=== PATIENT | male | born 1960 | race Caucasian/White ===

== ENCOUNTER → 2017-07-24 | Outpatient (CLI) | payer BC, OTHER ==
[~2017-07-24] MED LIST: ALLO100T PO; ALLOPURINOL; ALLP100T PO; ASPI-999 PO; Aspirin PO; GABA600T2 PO; HCT25T; HCT25T PO; HYDR-707 PO; HYDR25TA4 PO; ISOS30TA3 PO; LISI20TA; NFPROP80LA PO; Non Medication Item PO; OMEG1CAP51; OMEG1CAP51 PO; OXYC1TAB25 PO; PANT40TA2 PO; PNT40TEC PO; PREG150C PO; PREG25CA PO; PROP120C21 PO; PROP120C3 PO; PROPANOLOL; TICA90TA PO; Ticagrelor PO; UBID1CAP51 PO; VERA240T; VERA240T98 PO; VRP240TCR PO
== END ==
LOC: CARD 13:44
PROVIDERS: ATTEND Internal Medicine Cardiovascular Disease
DX: I25.10 Atherosclerotic heart disease of native coronary artery without angina pectoris (principal); I10 Essential (primary) hypertension; R00.2 Palpitations; I07.1 Rheumatic tricuspid insufficiency
CPT/HCPCS: 93306

== ENCOUNTER → 2017-08-01 | Outpatient (CLI) | payer BC, OTHER ==
[~2017-08-01] MED LIST changes: +CATHETER FLUSH 10 ML SYR IV PRN
[2017-08-01 09:21] VITALS: BP 140/69
[2017-08-01 09:26] VITALS: BP 150/75
[2017-08-01 09:33] VITALS: BP 210/86
--- NOTE | 2017-08-02 06:30 | STRESS TEST ---
DATE OF SERVICE: 08/01/2017 EXERCISE MYOVIEW STRESS TEST REPORT Baseline heart rate is 60. Baseline blood pressure 149/93. Baseline EKG is sinus rhythm with no ischemic changes. In summary, the patient was injected with 10.98 mCi of technetium-99 Myoview and the resting images were obtained. Then, the patient started exercising with a baseline heart rate, blood pressure and EKG mentioned above. At minute 9, the patient was injected with 28.4 mCi of technetium-99 Myoview. The patient was able to exercise for a total of 10 minutes on standard Brian protocol. With peak exercise level, EKG was showing minimal nondiagnostic changes [address] depression in II, III, aVF. Blood pressure was 150/75, it went up to 210/86. During recovery, heart rate and blood pressure returned to baseline. EKG returned to baseline. The resting and stress images were reviewed and compared in the short axis, horizontal long axis and vertical long axis views revealed the images showed diaphragmatic attenuation with typical male pattern. No significant ischemia or infarction on SPECT images. SSS is 1, SDS 1, TID value 0.91. On the gated images, the left ventricle appeared to be normal size with normal contractility, calculated ejection fraction 59%. IN CONCLUSION: 1. Good exercise tolerance. A total of 10 minutes on standard Brian protocol, total of 11.7 METS achieving 98% of maximum expected heart rate. 2. Severe hypertensive response to exercise, returned to baseline during recovery. 3. Nondiagnostic EKG changes with exercise, returned to baseline during recovery. 4. Typical male pattern with no significant ischemia or infarction on SPECT images. 5. Normal left ventricular size with normal contractility. Calculated ejection fraction 59%. Job ID: [id number] DocumentID: [id number] Dictated Date: 08/01/2017 15:26:19 Field Irrigation Worker Date: 08/02/2017 00:12:15 Dictated By: CHECO CARRANZA MD
== END ==
LOC: CARD 07:09
PROVIDERS: ATTEND Physician Assistant
DX: I25.10 Atherosclerotic heart disease of native coronary artery without angina pectoris (principal); I10 Essential (primary) hypertension; I07.1 Rheumatic tricuspid insufficiency; R00.2 Palpitations
CPT/HCPCS: 78452; 93017

== ENCOUNTER 2017-12-18 13:00 | Outpatient (CLI) | payer BC ==
[~2017-12-18] VITALS: Ht 182.9 cm; Wt 108.9 kg
[~2017-12-18 13:00] MED LIST changes: -CATHETER FLUSH 10 ML SYR IV PRN; +DOCO1CAP3 PO; +DULO60CA6 PO; +PROP80TA3 PO; +UBID1CAP53 PO
== END 2017-12-18 13:29 ==
LOC: PREOP 13:00
PROVIDERS: ATTEND Internal Medicine
DX: Z01.818 Encounter for other preprocedural examination (principal); Z12.11 Encounter for screening for malignant neoplasm of colon

== ENCOUNTER 2017-12-21 07:55 | Day surgery (SDC) | payer BC ==
--- NOTE | 2017-12-14 13:45 | HISTORY AND PHYSICAL ---
DATE OF SERVICE: COLONOSCOPY H AND P DATE OF ADMISSION: 12/21/2017 HISTORY OF PRESENT ILLNESS: The patient is a 57-year-old white male referred by Dr. Cb Iniguez for his first screening colonoscopy. He is deemed to be of average risk for colon cancer as he is not aware of any family history for colon cancer. He thought that his parents had undergone colonoscopy, but was unsure as to whether or not they had any polyps. I reviewed their electronic medical records and there have been no evidence for colonoscopy having been performed on either within the last 11 years at our institution. He reports no problems with bright red blood per rectum, melena and denies bowel habit change or abdominal pain. There is no known family history for inflammatory bowel disease or any other known GI tract malignancy. PAST MEDICAL HISTORY: Significant for coronary artery disease. He underwent drug-eluting stent placement to the LAD in 2014 with one subsequent admission after stent placement in 2014. Repeat catheterization revealed a patent stent with nonobstructive moderate right coronary artery disease and preserved ejection fraction estimated at 60%. 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 He still reports weakness and ultimately underwent biopsies in 2009 and in 2010, but did not apparently result in any subsequent medical therapy. He has not been getting progressively worse. PAST SURGICAL HISTORY: He has had arthroscopic surgery for reported bone spurs in both shoulders and bilateral arthroscopic knee surgery with no history of joint replacement. FAMILY HISTORY: Mother is living at the age of 80, has history of coronary artery disease. Father at the age of 86, also had coronary artery disease, but cause of was related to Alzheimer's dementia. MEDICATIONS ON ADMISSION: Include verapamil ER 240 daily, hydrochlorothiazide 25 mg daily, propranolol ER 80 mg daily, allopurinol 200 mg daily, fish oil daily, Cymbalta, unknown dose daily and a baby aspirin daily. SOCIAL HISTORY: The patient reports no past smoking or drinking history and is gainfully employed. REVIEW OF SYSTEMS: CONSTITUTIONAL: The patient reports his weight has been stable. He denies night sweats, chills, fever or fatigue. CARDIOVASCULAR: He denies any current chest pain or increase in dyspnea on exertion over baseline, syncope, presyncope with no intervention since 2014. PULMONARY: He denies problems with cough, wheezing, pleuritic chest pain or shortness of breath. PSYCHIATRIC: He reports depression has been controlled in remission with no anxiety. PHYSICAL EXAMINATION: GENERAL: Reveals a pleasant overweight white male in no acute distress. VITAL SIGNS: Weight 248 pounds, blood pressure 114/74, heart rate 66 and regular. HEENT: Unremarkable. Sclerae are nonicteric, atraumatic, normocephalic. NECK: Revealed no JVD, adenopathy or bruits. Oral cavity reveals a Mallampati class III configuration without exudate. CHEST: Clear. CARDIOVASCULAR: Reveals regular rate and rhythm without murmur, S3 or S4. EXTREMITIES: Reveal no cyanosis, clubbing or edema. ASSESSMENT/PLAN: The patient was set up for his first screening colonoscopy on 12/21/2017. Prep instructions with the Foreman-prep kit were given and questions were answered. In today's evaluation and review of electronic medical record, little over 45 minutes of care time was spent by myself and another 15 minutes of staff time in going over prep instructions and setting up the procedure. I thank you for the referral of this pleasant gentleman. Job ID: [id number] DocumentID: [id number] Dictated Date: 12/14/2017 12:36:02 Commercial Hvac Service Technician Date: 12/14/2017 13:44:24 Dictated By: HUSSEIN ADAMS MD
[~2017-12-21] VITALS: Ht 182.9 cm; Wt 108.9 kg
--- OUTSIDE RECORDS SUMMARY | 2017-12-21 07:58 | XMS REPORT | Clinical Summary ---
Author Author [facility] Organization [facility] Address Unknown Phone Unavailable Care Team Providers Care Fleet Assistant Name Role Phone Edgar Velazquez MD PCP Source Comments Some departments are not documenting in the electronic medical record. If you do not see the information that you expected, contact Release of Information in the Health Information Management department at [phone] for further assistance in locating additional records.[facility] Allergies Not on File Current Medications Not on file Active Problems Not on file Social History Tobacco Use Types Packs/Day Years Used Date Never Assessed Sex Assigned at Date Recorded Not on file Last Filed Vital Signs Not on file Plan of Treatment Health Maintenance Due Date Last Done Comments HEPATITIS C SCREENING 1959 PHYSICAL (COMPREHENSIVE) 1966 EXAM PERTUSSIS VACCINE 1970 TETANUS VACCINE 02/18/1976 COLORECTAL CANCER 2009 SCREENING INFLUENZA VACCINE 05/22/2017 Results Not on filefrom Last 3 Months
--- OUTSIDE RECORDS SUMMARY | 2017-12-21 07:59 | XMS REPORT ---
Author Author JACKY VERMA Organization [employer] Address Unknown Phone Unavailable Care Team Providers Care Passenger Attendant Name Role Phone JACKY VERMA CP Unavailable Allergies No Known Allergies Problems Problem Type Condition ICD-9 Code Onset Dates Condition Status Assessment Dental examination V72.2 Active Medications No Known Medications Procedures Procedure Coding System Code Date INTRAORL-PERIAPICAL 1 FILM 65397 CPT-4 D0220 May 07, 2015 BITEWING - SINGLE FILM CPT-4 D0270 May 07, 2015 LTD ORAL EVALUATION - PROBLEM FOCUS CPT-4 D0140 May 07, 2015 Results No Known Results Summary Purpose [employer] Submission
--- OUTSIDE RECORDS SUMMARY | 2017-12-21 07:59 | XMS REPORT | Continuity of Care Document ---
Author Author [facility] Organization [facility] Address Unknown Phone Unavailable Allergies Active Description Code Type Severity Reaction Onset Reported/Identified Relationship to Patient Clinical Status Yes No Known Drug Allergies [id number] Drug Allergy Mild N/A 05/03/2009 Yes Npvxhgj-Ehn-Rsw Reductase Inhibitor [id number] Drug Allergy Unknown N/A Yes Ctdqkeu-Okm-Fyx Reductase Inhibitor [id number] Drug Allergy Mild RHABDOMYOLYSIS 12/18/2017 Medications There is no data. Problems Date Dx Coded Attending Type Code Diagnosis Diagnosed By 09/12/2011 Ot 729.1 09/12/2011 Ot 795.79 04/13/2015 Ot 785.1 04/13/2015 Ot 796.4 04/13/2015 Ot V72.84 04/13/2015 Ot V74.8 04/13/2015 Ot 795.79 04/13/2015 Ot 443.9 04/15/2015 MARIA TERESA REINA MD Ot 278.00 OBESITY, NOS 04/15/2015 MARIA TERESA REINA MD Ot 401.9 HYPERTENSION NOS 04/15/2015 MARIA TERESA REINA MD Ot 414.01 CORONARY ATHEROSCLEROSIS OF [place] RESERV[place] CORON 04/15/2015 MARIA TERESA REINA MD Ot 728.88 RHABDOMYOLYSIS 04/15/2015 MARIA TERESA REINA MD Ot 786.50 CHEST PAIN NOS 04/15/2015 MARIA TERESA REINA MD Ot V58.69 OTH MED,LT,CURRENT USE 04/15/2015 MARIA TERESA REINA MD Ot V85.35 BODY MASS INDEX 35.0-35.9, ADULT 07/09/2015 Ot 785.1 07/09/2015 Ot 796.4 07/09/2015 Ot V72.84 07/09/2015 Ot V74.8 07/09/2015 Ot 795.79 07/09/2015 Ot 443.9 07/09/2015 CHECO CARRANZA MD Ot 272.4 HYPERLIPIDEMIA NEC/NOS 07/09/2015 CHECO CARRANZA MD Ot 278.00 OBESITY, NOS 07/09/2015 CHECO CARRANZA MD Ot 401.9 HYPERTENSION NOS 07/09/2015 CHECO CARRANZA MD Ot 411.1 INTERMED CORONARY SYND 07/09/2015 CHECO CARRANZA MD Ot 414.01 CORONARY ATHEROSCLEROSIS OF [place] RESERVATION CORON 07/09/2015 CHECO CARRANZA MD Ot 785.1 PALPITATIONS 07/09/2015 CHECO CARRANZA MD Ot V17.49 FAMILY HISTORY OF OTHER CARDIOVASCULAR D 07/09/2015 CHECO CARRANZA MD Ot V45.82 PERCUTANEOUS TRANSLUM CORON ANGIOPLASTY 07/09/2015 CHECO CARRANZA MD Ot V58.63 LONG-TERM(CURRENT)USE OF ANTIPLATELET/AN 07/09/2015 CHECO CARRANZA MD Ot V58.69 OTH MED,LT,CURRENT USE 07/09/2015 CHECO CARRANZA MD Ot V85.35 BODY MASS INDEX 35.0-35.9, ADULT 07/18/2017 Ot 443.9 PERIPH VASCULAR DIS NOS 07/24/2017 Ot 443.9 PERIPH VASCULAR DIS NOS 08/01/2017 CHECO CARRANZA MD Ot I07.1 RHEUMATIC TRICUSPID INSUFFICIENCY 08/01/2017 CHECO CARRANZA MD Ot I10 ESSENTIAL (PRIMARY) HYPERTENSION 08/01/2017 CHECO CARRANZA MD Ot I25.10 ATHSCL HEART DISEASE OF [place] CORONARY 08/01/2017 CHECO CARRANZA MD Ot R00.2 PALPITATIONS 08/15/2017 CANDI EASTMAN Ot I07.1 RHEUMATIC TRICUSPID INSUFFICIENCY 08/15/2017 CANDI EASTMAN Ot I10 ESSENTIAL (PRIMARY) HYPERTENSION 08/15/2017 CANDI EASTMAN Ot I25.10 ATHSCL HEART DISEASE OF [place] RESERV[place] CORONARY 08/15/2017 CANDI EASTMAN Ot R00.2 PALPITATIONS 12/17/2017 CANDI EASTMAN Ot I07.1 RHEUMATIC TRICUSPID INSUFFICIENCY 12/17/2017 CANDI EASTMAN Ot I10 ESSENTIAL (PRIMARY) HYPERTENSION 12/17/2017 CANDI EASTMAN Ot I25.10 ATHSCL HEART DISEASE OF [place] RESERV[place] CORONARY 12/17/2017 CANDI EASTMAN Ot R00.2 PALPITATIONS 12/18/2017 HUSSEIN ADAMS MD Ot Z01.818 ENCOUNTER FOR OTHER PREPROCEDURAL EXAMIN 12/18/2017 HUSSEIN ADAMS MD Ot Z12.11 ENCOUNTER FOR SCREENING FOR MALIGNANT NE 12/18/2017 HUSSEIN ADAMS MD Ot Z01.818 ENCOUNTER FOR OTHER PREPROCEDURAL EXAMIN 12/18/2017 HUSSEIN ADAMS MD Ot Z12.11 ENCOUNTER FOR SCREENING FOR MALIGNANT NE 12/19/2017 CANDI EASTMAN Ot I07.1 RHEUMATIC TRICUSPID INSUFFICIENCY 12/19/2017 CANDI EASTMAN Ot I10 ESSENTIAL (PRIMARY) HYPERTENSION 12/19/2017 CANDI EASTMAN Ot I25.10 ATHSCL HEART DISEASE OF [place] RESERV[place] CORONARY 12/19/2017 CANDI EASTMAN Ot R00.2 PALPITATIONS Procedures There is no data. Results There is no data. Encounters ACCT No. Visit Date/Time Discharge Status Pt. Type Provider Facility Loc./Unit Complaint [id number] 12/18/2017 13:00:00 12/18/2017 13:29:00 DIS Outpatient HUSSEIN ADAMS MD [facility] PREOP COLONOSCOPY [id number] 08/01/2017 07:09:00 08/01/2017 23:59:59 CLS Outpatient CANDI EASTMAN [facility] CARD CAD [id number] 07/24/2017 13:44:00 07/24/2017 23:59:59 CLS Outpatient CHECO CARRANZA MD [facility] CARD CAD [id number] 07/09/2015 10:40:00 07/09/2015 17:30:00 DIS Outpatient CHECO CARRANZA MD [facility] CATH CP HTN PALPITATIONS HLP [id number] 04/13/2015 12:15:00 04/15/2015 07:00:00 DIS Outpatient MARIA TERESA REINA MD [facility] CATH CHEST PAIN [id number] 12/21/2017 07:55:00 ACT Outpatient HUSSEIN ADAMS MD [facility] ENDO SCREENING [id number] 07/12/2012 09:02:00 Document Registration [id number] 09/12/2011 05:39:00 Document Registration [id number] 09/11/2011 16:08:00 Document Registration [id number] 09/11/2011 15:22:00 Document Registration [id number] 09/08/2010 13:55:00 Document Registration
[2017-12-21] MEDS ORDERED: 1/2 NS IV SOLUTION 1,000 ML IV STA (08:02)
[2017-12-21] MEDS ORDERED: 1/2 NS IV SOLUTION 1,000 ML IV ONE (08:05)
[2017-12-21] MEDS ORDERED: LIDOCAINE JELLY 2% (XYLOCAINE) 5 ML TUBE MM PRN (08:15)
[2017-12-21 08:17] VITALS: BP 118/74
--- NOTE | 2017-12-21 08:48 | Pre-Op Note & Conscious Sedat ---
Pre-Operative Progress Note H&P Reviewed The H&P was reviewed, patient examined and no changes noted. Date H&P Reviewed: Dec 21, 2017 Time H&P Reviewed: 08:47 Conscious Sedation Pre-Proced ASA Class: 2 Airway Mallampati Classification: ([place] appropriate class) I. II. III, IV Lungs Heart ASA score ASA 1: a normal healthy patient ASA 2: a patient with a mild systemic disease (mid diabetes, controlled hypertension, obesity ASA 3: a patient with a severe systemic disease that limits activity (angina , COPD, prior Myocardial infarction) ASA 4: a patient with an incapacitating disease that is a constant threat to life (CHF, renal failure) ASA 5: a moribund patient not expected to survive 24 hrs. (ruptured aneurysm) ASA 6: a declared brain patient whose organs are being harvested. For emergent operations, add the letter E after the classification Grade 3 Sedation Plan: Analgesia, Amnesia, Plan communicated to team members, Discussed options with patient/fam, Discussed risks with patient/fam Note The patient is an appropriate candidate to undergo the planned procedure, sedation, and anesthesia. The patient immediately re-assessed prior to indication. HUSSEIN ADAMS MD Dec 21, 2017 08:48
[2017-12-21] MEDS ORDERED: LIDOCAINE JELLY 2% (XYLOCAINE) 5 ML TUBE ONE (09:33)
[2017-12-21] MEDS ORDERED: fentaNYL INJECTION 100 MCG/2 ML AMP ONE (09:33)
[2017-12-21] MEDS ORDERED: MIDAZOLAM 2 MG/2 ML (VERSED) VIAL ONE ×3 (09:34)
[2017-12-21] MEDS: fentaNYL INJECTION 100 MCG/2 ML AMP IVP PRN ×2 (09:50→09:58)
[2017-12-21] MEDS: MIDAZOLAM 2 MG/2 ML (VERSED) VIAL IVP PRN ×2 (09:51→09:59)
[2017-12-21 10:55] VITALS: BP 137/77
[2017-12-21 11:25] VITALS: BP 126/82
[2017-12-21 11:45] VITALS: BP 126/82
--- NOTE | 2017-12-21 23:37 | OPERATIVE REPORT ---
DATE OF SERVICE: COLONOSCOPY SUMMARY INDICATION FOR PROCEDURE: Screening colonoscopy. DESCRIPTION OF PROCEDURE: The patient was placed in the left lateral decubitus position. Prior to undergoing colonoscopy, a digital rectal evaluation was performed. Anal sphincter tone was normal and the perianal reflexes are intact. No abnormalities, no additional inspection of the prostate, which was normal in size, anodular and nontender to palpation. No abnormalities, no additional inspection of the anal canal or distal rectal vault. The colonoscope was then inserted into the rectum under direct visualization and advanced to the cecum. The cecum was identified by identification of the ileocecal valve and cecal strap. Photographic documentation was obtained. Careful inspection was made as the colonoscope was withdrawn. FINDINGS: There was no evidence for internal or external hemorrhoids. The rectum was unremarkable. Present in the distal sigmoid colon 20 cm from the anal verge was an 8 mm sessile adenomatous appearing polyp with uniform mucosal features. Photographs were obtained. The polyp was then biopsied, ablated and submitted for histopathology. The remainder of the sigmoid colon, descending colon, splenic flexure, transverse colon, hepatic flexure, ascending colon and cecum were unremarkable. The patient reported the quality of the prep was suboptimal. The patient stated that he did use the Foreman-prep taking both doses. We will likely have to extend clear liquid status for longer than 24 hours on subsequent surveillance colonoscopy. We will wait on histopathology reports before making screening colonoscopy interval recommendations considering the quality of the prep; however, we will likely be recommending a one year interval. I thank you for the referral of this pleasant gentleman. Job ID: [id number] DocumentID: [id number] Dictated Date: 12/21/2017 11:46:18 Fashion Styling Intern Date: 12/21/2017 23:36:24 Dictated By: HUSSEIN ADAMS MD
== END 2017-12-21 11:45 | disposition home or self-care (01) ==
LOC: ENDO 07:55
PROVIDERS: ATTEND Internal Medicine
DX: Z12.11 Encounter for screening for malignant neoplasm of colon (principal); D12.5 Benign neoplasm of sigmoid colon; I25.10 Atherosclerotic heart disease of native coronary artery without angina pectoris; Z95.5 Presence of coronary angioplasty implant and graft; Z79.82 Long term (current) use of aspirin; Z79.899 Other long term (current) drug therapy

== ENCOUNTER 2018-01-28 11:33 | Outpatient (RCR) | payer BC | END 2018-04-28 | disposition home or self-care (01) | LOC: CARD 11:33 | PROVIDERS: ATTEND Physician Assistant | DX: R00.1 Bradycardia, unspecified (principal); I25.10 Atherosclerotic heart disease of native coronary artery without angina pectoris; I10 Essential (primary) hypertension; R07.89 Other chest pain | CPT/HCPCS: 93225; 93226 ==

== ENCOUNTER 2018-02-05 19:53 | Outpatient (CLI) | payer BC | END 2018-02-06 06:15 | disposition home or self-care (01) | LOC: SLEEP 19:53 | PROVIDERS: ATTEND Internal Medicine Cardiovascular Disease | DX: G47.33 Obstructive sleep apnea (adult) (pediatric) (principal); R06.83 Snoring; I10 Essential (primary) hypertension; I49.9 Cardiac arrhythmia, unspecified | CPT/HCPCS: 95810 ==

== ENCOUNTER → 2019-08-27 | Outpatient (CLI) | payer BC ==
[~2019-08-27] MED LIST changes: +VERA240T14 PO
== END | disposition home or self-care (01) ==
LOC: PREOP 05:56
PROVIDERS: ATTEND Internal Medicine
DX: Z01.818 Encounter for other preprocedural examination (principal)

== ENCOUNTER 2019-08-29 07:16 | Day surgery (SDC) | payer BC, OTHER ==
--- NOTE | 2019-08-25 13:13 | HISTORY AND PHYSICAL ---
DATE OF SERVICE: 08/29/2019 COLONOSCOPY HISTORY AND PHYSICAL HISTORY OF PRESENT ILLNESS: The patient is a 59-year-old white male referred for surveillance colonoscopy. He underwent his first screening colonoscopy a year ago at which time a little over 1 cm adenoma was removed from the sigmoid colon. It was sessile and noted to be tubular adenoma on histopathology. He reports that there has been no change in his health history over the past year. No change in medication. He had no difficulty with colonoscopy last year, although his prep was suboptimal. Another reason for recommending an early colonoscopy. In questioning him, it took him longer than average to drink prep solution, which likely had an adverse effect on prep results. PAST MEDICAL HISTORY: Significant for coronary artery disease. He underwent drug-eluting stent placement in the LAD in 2014. He had one admission for chest pain, but repeat catheterization the same year as his initial stent in 2014 revealed no change in disease with preserved ejection fraction estimated at 60%. He has a past history of apparent focal myositis involving the thighs in 2004 with no requirement for subsequent medical therapy evidence for any progression. PAST SURGICAL HISTORY: He has had arthroscopic surgery for bone spurs in both shoulders and bilateral arthroscopic knee surgery. No history for joint replacement. FAMILY HISTORY: Mother is living at the age of 80, has a history of coronary artery disease at an 81. Father at the age of 86 secondary to complications of Alzheimer dementia, also had coronary artery disease. MEDICATIONS ON ADMISSION: Include allopurinol, verapamil, propranolol, hydrochlorothiazide occasional NSAID usage for gout attacks, baby aspirin daily, Cymbalta, magnesium, tramadol and Vascepa. PHYSICAL EXAMINATION: GENERAL: Reveals a white male, appears to be in no acute distress. VITAL SIGNS: Weight at 255 pounds, is up 7 pounds from 18 months ago. Blood pressure 120/80, heart rate 66 and regular. HEENT: Unremarkable. Waist Mallampati class 2 oropharyngeal configuration. CHEST: Clear to auscultation. CARDIOVASCULAR: Reveals a regular rate and rhythm without murmur, S3 or S4. ABDOMEN: Soft, supple without mass, organomegaly or tenderness. EXTREMITIES: Reveal no cyanosis, clubbing or edema. ASSESSMENT AND PLAN: The patient is set up for surveillance colonoscopy due to past history of colon polyp 18 months ago with suboptimal prep. He will try Gatorade with Suprep and will get each dose down within an hour after discussion. We will make sure that he maintains clear liquid diet for a minimum of 24 hours prior to the procedure. The patient is to stop aspirin today and we will be setting him up for colonoscopy on 08/29/2018. Prep instructions with the Suprep kit were given and again questions answered. I thank you for the referral of this pleasant gentleman. Job ID: [id number] DocumentID: [id number] Dictated Date: 08/21/2019 15:51:31 Selector Packer Date: 08/21/2019 16:23:01 Dictated By: HUSSEIN ADAMS MD MTDD
[~2019-08-29] VITALS: Ht 175.3 cm; Wt 115.8 kg
[2019-08-29] VITALS (10 sets, daily range): BP systolic 129–181; BP diastolic 75–93
[2019-08-29] MEDS ORDERED: D5 LR IV SOLUTION 1,000 ML IV STA (07:43)
[2019-08-29] MEDS ORDERED: D5 LR IV SOLUTION 1,000 ML IV ONE (07:43)
[2019-08-29] MEDS ORDERED: LIDOCAINE JELLY 2% 6 ML SYRINGE MM PRN (07:45)
[2019-08-29] MEDS ORDERED: fentaNYL INJECTION 100 MCG/2 ML AMP IVP ONE (07:45)
[2019-08-29] MEDS ORDERED: MIDAZOLAM 5 MG/5 ML (VERSED) VIAL IV PRN (07:45)
--- NOTE | 2019-08-29 07:56 | Pre-Op Note & Conscious Sedat ---
Pre-Operative Progress Note H&P Reviewed The H&P was reviewed, patient examined and no changes noted. Date H&P Reviewed: Aug 29, 2019 Time H&P Reviewed: 07:45 Conscious Sedation Pre-Proced ASA Score 2 For ASA 3 and 4: Consider anesthesia and medical clearance. Also, for patients with a history of failed moderate sedation consider anesthesia. Airway Lungs Heart ASA score ASA 1: a normal healthy patient ASA 2: a patient with a mild systemic disease (mid diabetes, controlled hypertension, obesity ASA 3: a patient with a severe systemic disease that limits activity (angina, COPD, prior Myocardial infarction) ASA 4: a patient with an incapacitating disease that is a constant threat to life (CHF, renal failure) ASA 5: a moribund patient not expected to survive 24 hrs. (ruptured aneurysm) ASA 6: a declared brain- patient whose organs are being harvested. For emergent operations, add the letter E after the classification Mallampati Classification Grade 2 Sedation Plan Analgesia, Amnesia, Plan communicated to team members, Discussed options with patient/fam, Discussed risks with patient/fam The patient is an appropriate candidate to undergo the planned procedure, sedation, and anesthesia. The patient immediately re-assessed prior to indication. HUSSEIN ADAMS MD Aug 29, 2019 07:56 POS
[2019-08-29] MEDS ORDERED: fentaNYL INJECTION 100 MCG/2 ML AMP ONE (07:58)
[2019-08-29] MEDS ORDERED: MIDAZOLAM 5 MG/5 ML (VERSED) VIAL ONE (07:58)
[2019-08-29] MEDS ORDERED: LIDOCAINE JELLY 2% 6 ML SYRINGE ONE (07:59)
--- NOTE | 2019-08-29 17:31 | OPERATIVE REPORT ---
DATE OF SERVICE: 08/29/2019 COLONOSCOPY SUMMARY INDICATION FOR THE PROCEDURE: Surveillance colonoscopy, history of colon polyps. DESCRIPTION OF PROCEDURE: The patient was placed in left lateral decubitus position. Prior to undergoing colonoscopy, digital rectal evaluation was performed. Anal sphincter tone was normal and the perianal reflex was intact. Prostate is normal in size, anodular, nontender to digital inspection. The colonoscope was then inserted into the rectum and under direct visualization advanced to cecum. The cecum was identified by identification of the ileocecal valve and cecal strap. Photographic documentation was obtained. Careful inspection was made as the colonoscope was withdrawn. FINDINGS: There was no evidence for internal or external hemorrhoids and the rectum was unremarkable. Several small sigmoid diverticulum were present with evidence for haustral hypertrophy, but no evidence for acute diverticulitis. There was no evidence for recurrence of previous sigmoid polyp removed via hot forceps. No other sigmoid colonic abnormalities were appreciated. The descending colon, splenic flexure, transverse colon, hepatic flexure, ascending colon and cecum were unremarkable. ASSESSMENT: The quality of prep was fair, which was an improvement from his last procedure. No evidence for neoplasia was identified. Again noted was mild to moderate diverticular disease confined to the sigmoid colon without evidence for diverticulitis. I would advocate repeat surveillance colonoscopy in 5 years. Sincerely, Job ID: [id number] DocumentID: [id number] Dictated Date: 08/29/2019 09:04:35 Instructional Systems Design Consultant Date: 08/29/2019 17:30:34 Dictated By: HUSSEIN ADAMS MD
== END 2019-08-29 09:00 | disposition home or self-care (01) ==
LOC: ENDO 07:16
PROVIDERS: ATTEND Internal Medicine
DX: Z12.11 Encounter for screening for malignant neoplasm of colon (principal); K57.30 Diverticulosis of large intestine without perforation or abscess without bleeding; Z88.8 Allergy status to other drugs, medicaments and biological substances; Z86.010 Personal history of colon polyps; Z79.899 Other long term (current) drug therapy; Z79.82 Long term (current) use of aspirin; Z82.49 Family history of ischemic heart disease and other diseases of the circulatory system

== ENCOUNTER → 2022-08-07 | Outpatient (CLI) | payer OTHER ==
[~2022-08-07] MED LIST changes: -DULO60CA6 PO; +DULO60CA7 PO; -ISOS30TA3 PO; +ISOS30TA82 PO; -NFPROP80LA PO; +PROP80CA47 PO; -VERA240T14 PO; +VERA240T90 PO
== END ==
LOC: CARD 14:40
PROVIDERS: ATTEND Physician Assistant
DX: I25.10 Atherosclerotic heart disease of native coronary artery without angina pectoris (principal); I11.9 Hypertensive heart disease without heart failure
CPT/HCPCS: 93306

== ENCOUNTER → 2022-08-23 | Outpatient (CLI) | payer OTHER ==
[~2022-08-23] VITALS: Ht 182 cm; Wt 115.0 kg
[~2022-08-23] MED LIST changes: +CATHETER FLUSH 10 ML SYR IVP PRN; +REGADENOSON 0.4 MG/5 ML SYR (LEXISCAN) IV ONE
[2022-08-23 09:06] VITALS: BP 113/67
--- NOTE | 2022-08-23 11:20 | Cardiology Stress Test Report ---
Stress Test Report Date of Procedure/Referring: Date of Procedure: Aug 23, 2022 PCP Maria Teresa Reina MD Admitting Physician Admitting Physician: Attending Physician: Kati Coates Indications: CAD Baseline Heart Rate: 59 Baseline Blood Pressure: Blood Pressure Systolic: 113 Blood Pressure Diastolic: 67 Baseline Vitals Vital Signs Date Time Temp Pulse Resp B/P (MAP) Pulse Ox O2 Delivery O2 Flow Rate FiO2 08/23/22 09:06 73 17 113/67 (82) Baseline EKG: Baseline EKG: NSR Summary After explaining the procedure to the patient, he signed a consent and then brought to the stress nuclear laboratory. Patient received 0.4 mg Lexiscan for stress test, ECG, heart rate and blood pressure were monitored continuously. Resting and stress dose of radio tracer were injected, imaging was acquired and reviewed in short axis, horizontal long axis and vertical long axis views. TID: 1.13 SSS: 2 SDS: 2 EF: 60 1. Patient tolerated Lexiscan well 2. Frequent PVCs induced by Lexiscan. Improved in recovery 3. Mild reversible ischemia involving the inferoapical segment and the apex 4. Normal left ventricular size, ejection fraction 60% Copy Copies To 1: MARIA TERESA REINA MD, BASHAR J MD Aug 23, 2022 11:20
== END ==
LOC: CARD 07:30
PROVIDERS: ATTEND Physician Assistant
DX: I10 Essential (primary) hypertension (principal); I25.10 Atherosclerotic heart disease of native coronary artery without angina pectoris
CPT/HCPCS: 78452; 93017; A9502